=== PATIENT | female | born 1955 | race Caucasian/White ===

== ENCOUNTER 2022-06-17 02:22 | Inpatient (IN) | payer OTHER ==
[~2022-06-17] VITALS: Ht 167.6 cm; Wt 88.5 kg
--- NOTE | 2022-06-17 10:03 | NUR ---
Admitting Md business continuity planner dr ACEVEDO WAS CALLED, re; Admission order, pt is a direct admit from [facility]. Spoke to Gagandeep.
[2022-06-17] MEDS ORDERED: SYN50 PO (10:43)
[2022-06-17] MEDS ORDERED: PROP20TA7 PO (10:43)
[2022-06-17] MEDS ORDERED: PRO40 PO (10:43)
--- NOTE | 2022-06-17 10:45 | NUR ---
CONSULTATION PAGED REASON FOR CONSULTATION:GALLSTONES, PANCREATITIS WAS CONSULT CALLED?Y -PERSON WHO WAS NOTIFIED:CARMEN CONSULTING PHYSICIAN:ASYA KHAN LOGGING TRACTOR OPERATOR SWAMP SPECIALTY:GI LOGGING TRACTOR OPERATOR SWAMP PHONE NUMBER:[phone] REQUESTING PHYSICIAN:THANG BROWN
--- NOTE | 2022-06-17 10:45 | NUR ---
TRANSFER OF CARE RECEIVED REPORT FOR PATIENT
[2022-06-17 10:46] VITALS: BP_SYST 126
[2022-06-17] MEDS: NACL 0.9% 1,000 ML IV SCH ×2 (11:11→22:06)
[2022-06-17 11:12] LABS: BASOPHILS % (AUTO) 0.4 % (0.0-2.0); EOSINOPHILS # (AUTO) 0.1 K/uL (0.0-0.4); EOSINOPHILS % (AUTO) 1.1 % (0.0-4.0); HEMATOCRIT 37.5 % (36-48); HEMOGLOBIN 12.8 g/dL (12.0-16.0); LYMPHOCYTES # (AUTO) 1.5 K/uL (1.0-5.5); LYMPHOCYTES % (AUTO) 30.9 % (20.5-51.5); MEAN CORPUSCULAR HEMOGLOBIN 31 pg (27-31); MEAN CORPUSCULAR HGB CONC 34 % (32-36); MEAN CORPUSCULAR VOLUME 91 fL (79.0-98.0); MONOCYTES # (AUTO) 0.3 K/uL (0.0-1.0); MONOCYTES % (AUTO) 6.8 % (1.7-9.3); NEUTROPHILS % (AUTO) 60.8 % (40.0-70.0); PLATELET COUNT (AUTO) 179 K/uL (130-430); RED BLOOD CELL COUNT(AUTO) 4.14 MIL/uL (4.2-6.2); RED CELL DISTRIBUTION WIDTH 13.9 % (9.0-15.0)
--- NOTE | 2022-06-17 11:19 | NUR ---
MD DR COOPER BEDSIDE EXAMINING PATIENT
[2022-06-17 11:28] LABS: ALBUMIN 3.2 g/dL (3.4-4.8); CALCIUM 8.2 mg/dL (8.4-11.0); CREATININE 0.91 mg/dL (0.55-1.30); POTASSIUM 3.8 mmol/L (3.5-5.1); TOTAL BILIRUBIN 0.2 mg/dL (0.0-1.0)
[2022-06-17 12:00] VITALS: BP_SYST 151
--- NOTE | 2022-06-17 12:30 | NUR ---
INFORMED DR FRIED OF INCREASED BP AND HEADACHE, NEW ORDERS RECEIVED
[2022-06-17] MEDS ORDERED: amLODIPine BESYLATE 5 MG TABLET PO ONE (12:45)
--- NOTE | 2022-06-17 13:01 | NUR ---
md PER DR FRIED, CLEAR LIQUID DIET UNTIL MIDNIGHT THEN NPO FOR HIDA SCAN, AFTER SCAN RETURN TO CLEAR LIQUID DIET
[2022-06-17] MEDS: ACETAMINOPHEN 500 MG TABLET PO PRN (13:15)
[2022-06-17] MEDS ORDERED: BUPR300T55 PO (13:34)
[2022-06-17] MEDS ORDERED: FLUO20CA42 PO (13:34)
[2022-06-17] MEDS ORDERED: PROPRANOLOL HCL 10 MG TABLET (INDERAL) PO PRN (13:45)
[2022-06-17] MEDS ORDERED: buPROPion HCL 150 MG XL TAB PO ONE (14:15)
[2022-06-17] MEDS ORDERED: FLUoxetine HCL 20 MG CAPSULE (PROzac) PO ONE (14:15)
[2022-06-17 16:00] VITALS: BP_SYST 154
[2022-06-17] MEDS: MORPHINE 2 MG/ML INJ. SYRINGE IVP PRN ×2 (16:31→20:55)
--- NOTE | 2022-06-17 18:38 | NUR ---
headache continues to have pain despite pain medication administration. Requested cool compress and ice pack
--- NOTE | 2022-06-17 19:18 | NUR ---
CLOSING NOTE PROVIDED SBAR TO NIGHT RN, PATIENT IN BED, RESPIRATIONS EVEN, NON LABORED, BED IN LOW AND LOCKED POSITION CALL LIGHT WITHIN REACH. IVF'S RUNNING ORDERED. ENDORSED CARE TO NIGHT RN
[2022-06-17 20:00] VITALS: BP_SYST 140
[2022-06-17] MEDS: PANTOPRAZOLE SODIUM 40 MG TAB PO SCH (20:54)
[2022-06-18 04:00] VITALS: BP_SYST 149
--- NOTE | 2022-06-18 07:05 | NUR ---
NOTE MD AT NURSES STATION AND VOICES TO KEEP PT NPO AND NO IV PAIN MEDICATION. IF NEEDED PATIENT COULD TAKE BP MEDS OR SOMETHING ESSENTIAL WITH A SIP OF WATER. THIS RN TO REPORT TO ONCOMING NURSE AND TO ALSO REPORT IT WAS OKAY FOR PT TO TAKE HER 0700 SYNTHROID WITH A SIP OF WATER. VOICED HE WOULD BE BACK AROUND 10:00AM.
[2022-06-18] MEDS: LEVOTHYROXINE SODIUM 0.05 MG TABLET PO SCH (08:16)
[2022-06-18] MEDS ORDERED: FLUoxetine HCL 20 MG CAPSULE (PROzac) PO SCH (09:00)
[2022-06-18] MEDS: FLUoxetine HCL 20 MG CAPSULE (PROzac) PO SCH (09:00)
[2022-06-18] MEDS: amLODIPine BESYLATE 5 MG TABLET PO SCH (09:00)
[2022-06-18] MEDS: PANTOPRAZOLE SODIUM 40 MG TAB PO SCH ×2 (09:00→21:10)
[2022-06-18] MEDS: buPROPion HCL 150 MG XL TAB PO SCH (09:00)
[2022-06-18 09:11] VITALS: BP_SYST 118
[2022-06-18] MEDS: NACL 0.9% 1,000 ML IV SCH ×2 (15:31→21:12)
[2022-06-18] MEDS ORDERED: AMLO5TAB4 PO (16:58)
[2022-06-18] MEDS ORDERED: PRO20 PO (16:58)
--- NOTE | 2022-06-18 18:17 | NUR ---
rn notes patient and her daughter waiting for the MD to talk to them about the plans for DC. Will DC right after that.
[2022-06-18 20:00] VITALS: BP_SYST 139
[2022-06-18] MEDS: MORPHINE 2 MG/ML INJ. SYRINGE IVP PRN (21:11)
[2022-06-19 04:10] VITALS: BP_SYST 143
[2022-06-19] MEDS: LEVOTHYROXINE SODIUM 0.05 MG TABLET PO SCH (06:13)
[2022-06-19] MEDS: amLODIPine BESYLATE 5 MG TABLET PO SCH (08:02)
[2022-06-19] MEDS: buPROPion HCL 150 MG XL TAB PO SCH (08:04)
[2022-06-19] MEDS: PANTOPRAZOLE SODIUM 40 MG TAB PO SCH ×2 (08:04→20:46)
[2022-06-19] MEDS: FLUoxetine HCL 20 MG CAPSULE (PROzac) PO SCH (08:05)
[2022-06-19 10:13] VITALS: BP_SYST 135
[2022-06-19] MEDS: ACETAMINOPHEN 500 MG TABLET PO PRN (12:34)
[2022-06-19] MEDS: MORPHINE 2 MG/ML INJ. SYRINGE IVP PRN ×2 (13:43→23:13)
--- NOTE | 2022-06-19 18:35 | NUR ---
rn notes patient remains on room air, no sob noted. NPO at this time and is running IV fluid. Plan is to have MRI MRCP iraida, surgical consultation done as well. Patient will not be going home at this time
[2022-06-19 20:00] VITALS: BP_SYST 133
[2022-06-19 20:12] VITALS: BP_SYST 132
--- NOTE | 2022-06-19 20:21 | NUR ---
RECEIVED PT LYING IN BED, NO DISTRESS NOTED, DENIES PAIN AT THIS TIME. EPIGASTRIC TENDERNESS UPON LIGHT PALPATION. NO DISTENTION NOTED. Addendum: 06/19/22 at 2024 by [facility] RegistryMONET RN IVF INFUSING TO LT AC SITE CDI.
[2022-06-19] MEDS: NACL 0.9% 1,000 ML IV SCH (23:09)
[2022-06-20 00:54] VITALS: BP_SYST 155
--- NOTE | 2022-06-20 04:50 | NUR ---
DR. RUSSELL CAME TO SEE PT LAST NIGHT
[2022-06-20] MEDS: LEVOTHYROXINE SODIUM 0.05 MG TABLET PO SCH (06:47)
[2022-06-20 07:42] LABS: ALBUMIN 3.2 g/dL (3.4-4.8); CALCIUM 8.2 mg/dL (8.4-11.0); CREATININE 0.86 mg/dL (0.55-1.30); POTASSIUM 3.3 mmol/L (3.5-5.1); TOTAL BILIRUBIN 0.3 mg/dL (0.0-1.0)
[2022-06-20 07:48] LABS: BASOPHILS % (AUTO) 0.3 % (0.0-2.0); EOSINOPHILS # (AUTO) 0.1 K/uL (0.0-0.4); EOSINOPHILS % (AUTO) 1.1 % (0.0-4.0); HEMOGLOBIN 13.2 g/dL (12.0-16.0); LYMPHOCYTES # (AUTO) 1.6 K/uL (1.0-5.5); LYMPHOCYTES % (AUTO) 33.5 % (20.5-51.5); MEAN CORPUSCULAR HEMOGLOBIN 31 pg (27-31); MEAN CORPUSCULAR HGB CONC 35 % (32-36); MEAN CORPUSCULAR VOLUME 90 fL (79.0-98.0); MONOCYTES # (AUTO) 0.5 K/uL (0.0-1.0); MONOCYTES % (AUTO) 9.4 % (1.7-9.3); NEUTROPHILS # (AUTO) 2.7 K/uL (1.8-7.7); NEUTROPHILS % (AUTO) 55.7 % (40.0-70.0); PLATELET COUNT (AUTO) 165 K/uL (130-430); RED BLOOD CELL COUNT(AUTO) 4.23 MIL/uL (4.2-6.2); RED CELL DISTRIBUTION WIDTH 13.7 % (9.0-15.0); WHITE BLOOD COUNT (AUTO) 4.9 K/uL (4.8-10.8)
[2022-06-20 08:00] VITALS: BP_SYST 145
[2022-06-20] MEDS ORDERED: DIATR MEGLU/DIATRIZ SOD 30 ML SOLUTION PO ONE (08:21)
[2022-06-20] MEDS: amLODIPine BESYLATE 5 MG TABLET PO SCH ×2 (09:00→11:02)
[2022-06-20] MEDS: FLUoxetine HCL 20 MG CAPSULE (PROzac) PO SCH (11:01)
[2022-06-20] MEDS: PANTOPRAZOLE SODIUM 40 MG TAB PO SCH ×2 (11:01→20:46)
[2022-06-20] MEDS: buPROPion HCL 150 MG XL TAB PO SCH (11:02)
[2022-06-20] MEDS: MORPHINE 2 MG/ML INJ. SYRINGE IVP PRN ×2 (11:13→17:05)
[2022-06-20] MEDS ORDERED: iohexoL 350 mgI/mL, 100 ML INFUS..BTL IV ONE (14:39)
[2022-06-20 16:33] VITALS: BP_SYST 142
[2022-06-20] MEDS: NACL 0.9% 1,000 ML IV SCH ×2 (17:02→20:47)
[2022-06-20 20:00] VITALS: BP_SYST 123
[2022-06-21] VITALS: BP_SYST 128
[2022-06-21] MEDS: MORPHINE 2 MG/ML INJ. SYRINGE IVP PRN ×3 (05:14→21:39)
[2022-06-21] MEDS: LEVOTHYROXINE SODIUM 0.05 MG TABLET PO SCH (06:23)
[2022-06-21 08:00] VITALS: BP_SYST 118
[2022-06-21] MEDS: amLODIPine BESYLATE 5 MG TABLET PO SCH (09:00)
--- NOTE | 2022-06-21 09:14 | NUR ---
DR RUSSELL S/W . PER MD NO PLAN SURGERY FOR PATIENT AT THIS TIME. PATIENT IS TOLERATING CLEAR LIQUID DIET, NO C/O NAUSEA OR VOMITING. STATED THAT SHE HAD GALLSTONES FOR 10 YEARS NOW AND NEVER BOTHERED HER. SHE IS COMPLAINING OF CRAMPING ON HER SUPRAPUBIC AREA AND IS ASKING IF THEY FOUND SOMETHING ABOUT HER LADY PARTS. WILL NOTIFY DR ACEVEDO
[2022-06-21] MEDS: FLUoxetine HCL 20 MG CAPSULE (PROzac) PO SCH (09:20)
[2022-06-21] MEDS: PANTOPRAZOLE SODIUM 40 MG TAB PO SCH ×2 (09:20→21:39)
[2022-06-21] MEDS: buPROPion HCL 150 MG XL TAB PO SCH (09:20)
--- NOTE | 2022-06-21 09:30 | NUR ---
ENDORSED CARE TO MONET HENSLEY PT AWAKE AND A/O NO DISTRESS
[2022-06-21] MEDS: NACL 0.9% 1,000 ML IV SCH (12:01)
--- NOTE | 2022-06-21 12:02 | NUR ---
Patient medicated for 7/10 abdominal pain. Started new IVF bag as well. Patient stable at this time.
[2022-06-21 12:05] VITALS: BP_SYST 127
[2022-06-21 16:00] VITALS: BP_SYST 121
--- NOTE | 2022-06-21 16:00 | NUR ---
Patient resting comfortably in bed with no complaint at this time. Patient stable.
--- NOTE | 2022-06-21 18:05 | NUR ---
Patient stable; resting comfortably in bed at this time. Stable throughout shift.
--- NOTE | 2022-06-21 19:05 | NUR ---
Patient ambulated to bathroom and back to bed. Patient stable at this time.
[2022-06-21 20:00] VITALS: BP_SYST 125
[2022-06-22] VITALS: BP_SYST 118
[2022-06-22] MEDS: NACL 0.9% 1,000 ML IV SCH (04:18)
[2022-06-22] MEDS: LEVOTHYROXINE SODIUM 0.05 MG TABLET PO SCH (06:46)
[2022-06-22 07:26] LABS: BASOPHILS % (AUTO) 0.4 % (0.0-2.0); EOSINOPHILS # (AUTO) 0.1 K/uL (0.0-0.4); HEMOGLOBIN 12.1 g/dL (12.0-16.0); LYMPHOCYTES # (AUTO) 1.4 K/uL (1.0-5.5); LYMPHOCYTES % (AUTO) 34.4 % (20.5-51.5); MEAN CORPUSCULAR HEMOGLOBIN 31 pg (27-31); MEAN CORPUSCULAR HGB CONC 35 % (32-36); MEAN CORPUSCULAR VOLUME 90 fL (79.0-98.0); MONOCYTES # (AUTO) 0.4 K/uL (0.0-1.0); MONOCYTES % (AUTO) 9.1 % (1.7-9.3); NEUTROPHILS # (AUTO) 2.2 K/uL (1.8-7.7); NEUTROPHILS % (AUTO) 54.1 % (40.0-70.0); PLATELET COUNT (AUTO) 153 K/uL (130-430); RED BLOOD CELL COUNT(AUTO) 3.89 MIL/uL (4.2-6.2); RED CELL DISTRIBUTION WIDTH 13.9 % (9.0-15.0); WHITE BLOOD COUNT (AUTO) 4.1 K/uL (4.8-10.8)
[2022-06-22] MEDS ORDERED: INDOMETHACIN 50 MG SUPP.RECT RC ONE (08:00)
[2022-06-22] MEDS: FLUoxetine HCL 20 MG CAPSULE (PROzac) PO SCH (08:00)
[2022-06-22 08:10] LABS: INR 1.2 (0.8-1.2); PROTHROMBIN TIME 11.9 SECS (9.5-12.5)
[2022-06-22 08:29] LABS: ALBUMIN 2.8 g/dL (3.4-4.8); CALCIUM 8.3 mg/dL (8.4-11.0); POTASSIUM 3.1 mmol/L (3.5-5.1); TOTAL BILIRUBIN 0.3 mg/dL (0.0-1.0)
[2022-06-22] MEDS ORDERED: NALOXONE HCL 0.4 MG/ML AMP (NARCAN) IVP PRN (08:45)
[2022-06-22] MEDS ORDERED: MORPHINE 4 MG INJ. 4 MG/ML VIAL IVP PRN (08:45)
[2022-06-22] MEDS ORDERED: HYDROmorphone 1 MG/ML INJ. CARTRIDGE IVP PRN (08:45)
[2022-06-22] MEDS ORDERED: METOCLOPRAMIDE HCL 10 MG/2 ML VIAL IVP PRN (08:45)
[2022-06-22] MEDS ORDERED: ONDANSETRON HCL 4 MG/2 ML VIAL IVP PRN (08:45)
[2022-06-22] MEDS ORDERED: KETOROLAC TROMETHAMINE 30 MG VIAL IVP PRN (08:45)
[2022-06-22] MEDS: amLODIPine BESYLATE 5 MG TABLET PO SCH (09:00)
[2022-06-22] MEDS: PANTOPRAZOLE SODIUM 40 MG TAB PO SCH ×2 (09:00→21:53)
[2022-06-22] MEDS: buPROPion HCL 150 MG XL TAB PO SCH (09:00)
[2022-06-22] MEDS ORDERED: PROPOFOL 200MG/ 20ML VIAL (DIPRIVAN) IV ONE (09:01)
[2022-06-22] MEDS ORDERED: SEVOFLURANE 15 MIN GAS INH ONE (09:01)
[2022-06-22] MEDS ORDERED: ROCURONIUM BROMIDE 10 MG/ML (ZEMURON) ONE (09:01)
[2022-06-22] MEDS ORDERED: GLUCAGON,HUMAN RECOMBINANT 1 MG VIAL ONE (09:01)
[2022-06-22] MEDS ORDERED: D5/0.45 NS 1,000 ML IV.SOLN IV ONE (09:01)
[2022-06-22] MEDS ORDERED: DEXAMETHASONE SOD PHOSPHATE 4 MG/ML VIAL ONE (09:08)
[2022-06-22] MEDS ORDERED: ALBUTEROL SULFATE 0.083% 2.5 MG/3 ML VIAL.NEB INH ONE ×2 (09:08→09:15)
[2022-06-22] MEDS: DEXAMETHASONE SOD PHOSPHATE 4 MG/ML VIAL IVP ONE ×2 (09:10→09:15)
[2022-06-22 09:24] VITALS: BP_SYST 118
[2022-06-22] MEDS: ONDANSETRON 4 MG ODT TAB PO PRN (09:25)
[2022-06-22] MEDS ORDERED: ONDANSETRON HCL 4 MG/2 ML VIAL ONE (09:27)
[2022-06-22] MEDS ORDERED: MORPHINE 4 MG INJ. 4 MG/ML VIAL ONE (09:27)
[2022-06-22] MEDS: KETOROLAC TROMETHAMINE 30 MG VIAL ONE ×2 (09:28→09:30)
[2022-06-22] MEDS: MORPHINE 2 MG/ML INJ. SYRINGE IVP PRN ×3 (09:36→21:54)
[2022-06-22 09:46] LABS: CREATININE 0.76 mg/dL (0.55-1.30)
[2022-06-22 09:49] LABS: BILIRUBIN,URINE NEGATIVE (NEGATIVE); BLOOD, URINE 1+ (NEGATIVE); CLARITY/URINE CLEAR (CLEAR); COLOR,URINE YELLOW (YELLOW); GLUCOSE,URINE NEGATIVE (NEGATIVE); KETONES,URINE 1+ (NEGATIVE); LEUKOCYTE ESTERASE ,URINE TRACE (NEGATIVE); NITRITE, URINE NEGATIVE (NEGATIVE); PROTEIN URINE NEGATIVE (NEGATIVE)
[2022-06-22 10:04] LABS: BACTERIA,URINE RARE /HPF (None Seen); MUCUS,URINE 1+ /LPF (None Seen); RBC,URINE 0-3 /HPF (0-3); WBC,URINE 0-3 /HPF (0-3)
[2022-06-22] MEDS: MIDAZOLAM HCL 2 MG/2 ML VIAL (VERSED) ONE ×3 (10:05→10:10)
[2022-06-22] MEDS ORDERED: MIDAZOLAM HCL 2 MG/2 ML VIAL (VERSED) IVP ONE (10:15)
[2022-06-22 10:56] VITALS: BP_SYST 162
--- NOTE | 2022-06-22 10:56 | NUR ---
Miss Nascimento has returned from PACU to room 112-A. She is accompanied by her daughter Lukasz. She is nauseated and in pain. She was also incontinent of bladder. She was given anti nausea medication as well as pain medication. she was cleaned and was then able to use the bed jacobson for more urine and a bm of soft stools. she was then allowed to rest.
[2022-06-22 12:46] VITALS: BP_SYST 137
--- NOTE | 2022-06-22 15:14 | NUR ---
Dietitian Recommendations * Continue plan for NPO * Consider alternative nutrition support within 14 days if PO diet is not gradually advanced to prevent malnutrition LP, MS, RD Please refer to Nutrition Assessment for details. Addendum: 06/22/22 at [address] Amended: Links added.
--- NOTE | 2022-06-22 16:00 | NUR ---
Miss Nascmiento has been seen by the surgeon. she will not be DC today. She can have her diet advanced as tolerated per the surgeon. She has no further complaints of pain or nausea. Her daughter remains at the bedside. She ambulates to the restroom with no assistance. She is presently resting quietly at this time.
[2022-06-22 16:53] VITALS: BP_SYST 139
[2022-06-22] MEDS: LR 1,000 ML IV SCH (17:19)
--- NOTE | 2022-06-22 18:45 | NUR ---
handoff has been given to Terence
[2022-06-22] MEDS ORDERED: KCL 40 mEq in 100 mL (PREMIX) 100 ML IV ONE (20:00)
[2022-06-22 20:31] VITALS: BP_SYST 147
[2022-06-23] MEDS: LR 1,000 ML IV SCH ×3 (00:35→16:45)
[2022-06-23 01:11] VITALS: BP_SYST 126
[2022-06-23] MEDS: LEVOTHYROXINE SODIUM 0.05 MG TABLET PO SCH (06:11)
[2022-06-23] MEDS ORDERED: HYDROcodone/ACETAMIN 5-325 MG TAB (NORCO/ VICODIN) PO PRN (07:00)
[2022-06-23 08:00] VITALS: BP_SYST 130
--- NOTE | 2022-06-23 08:00 | NUR ---
Initial Notes Patient is AOx4. Ambulatory with a steady gait. No s.s of distress noted. Patient is on room air. Breathing is even and nonlabored, Vital signs obtained, as documented. Patient is eating breakfast. Safety precautions in place and call light within reach.
[2022-06-23 08:11] LABS: ALBUMIN 3.2 g/dL (3.4-4.8); CALCIUM 9.4 mg/dL (8.4-11.0); CREATININE 0.88 mg/dL (0.55-1.30); POTASSIUM 4.2 mmol/L (3.5-5.1); TOTAL BILIRUBIN 0.4 mg/dL (0.0-1.0)
[2022-06-23] MEDS: amLODIPine BESYLATE 5 MG TABLET PO SCH (09:00)
[2022-06-23] MEDS: PANTOPRAZOLE SODIUM 40 MG TAB PO SCH (09:06)
[2022-06-23] MEDS: buPROPion HCL 150 MG XL TAB PO SCH (09:06)
[2022-06-23] MEDS: FLUoxetine HCL 20 MG CAPSULE (PROzac) PO SCH (09:06)
[2022-06-23 12:00] VITALS: BP_SYST 130
--- NOTE | 2022-06-23 12:00 | NUR ---
Notes Patient is eating lunch. No distress noted. Denies pain. Family at bedside. Call light within reach.
[2022-06-23 12:07] LABS: BASOPHILS % (AUTO) 0.6 % (0.0-2.0); EOSINOPHILS % (AUTO) 0.4 % (0.0-4.0); HEMATOCRIT 38.7 % (36-48); LYMPHOCYTES # (AUTO) 1.1 K/uL (1.0-5.5); LYMPHOCYTES % (AUTO) 17.5 % (20.5-51.5); MEAN CORPUSCULAR HEMOGLOBIN 31 pg (27-31); MEAN CORPUSCULAR HGB CONC 34 % (32-36); MEAN CORPUSCULAR VOLUME 91 fL (79.0-98.0); MONOCYTES # (AUTO) 0.4 K/uL (0.0-1.0); MONOCYTES % (AUTO) 7.3 % (1.7-9.3); NEUTROPHILS # (AUTO) 4.4 K/uL (1.8-7.7); NEUTROPHILS % (AUTO) 74.2 % (40.0-70.0); PLATELET COUNT (AUTO) 165 K/uL (130-430); RED BLOOD CELL COUNT(AUTO) 4.25 MIL/uL (4.2-6.2); RED CELL DISTRIBUTION WIDTH 14.1 % (9.0-15.0)
[2022-06-23 16:00] VITALS: BP_SYST 121
--- NOTE | 2022-06-23 16:00 | NUR ---
Notes Patient is resting in bed, watching videos on phone. No s/.s of distress noted. Patient denies pain. VSS. No change in assessment. Safety precautions in place and call light within reach.
--- NOTE | 2022-06-23 19:43 | NUR ---
Closing Notes Patient eating dinner. Denies pain. No SOB. Breathing is even and nonlabored, on room. All needs met. Safety precautions in place and call light within reach. Endorsed care to oncoming nurse.
--- NOTE | 2022-06-23 22:13 | NUR ---
Opening Notes Received report from day nurse. Unable to assess pt promptly, Charge Nurse Seven will assist in patient care.
[2022-06-23 22:30] VITALS: BP_SYST 161
--- NOTE | 2022-06-23 23:30 | NUR ---
Nursing Note Patient upset at lack of communication. Pt states that she was told by one of her doctors that she would have surgery on gallbladder the following day and wanted more information
[2022-06-24 00:29] VITALS: BP_SYST 137
[2022-06-24] MEDS: PANTOPRAZOLE SODIUM 40 MG TAB PO SCH ×2 (06:58→08:52)
[2022-06-24] MEDS: LEVOTHYROXINE SODIUM 0.05 MG TABLET PO SCH (07:00)
--- NOTE | 2022-06-24 07:25 | NUR ---
Morning rounds: Received report from night nurse.Patient awake lying in the bed.Denies any pain. Call light with in reach. Bed locked at lowest position. Not in any distress.
[2022-06-24 08:14] VITALS: BP_SYST 143
[2022-06-24 08:23] LABS: CALCIUM 8.8 mg/dL (8.4-11.0); CREATININE 0.82 mg/dL (0.55-1.30); POTASSIUM 3.2 mmol/L (3.5-5.1); TOTAL BILIRUBIN 0.3 mg/dL (0.0-1.0)
[2022-06-24] MEDS: amLODIPine BESYLATE 5 MG TABLET PO SCH ×2 (08:51→09:00)
[2022-06-24] MEDS: FLUoxetine HCL 20 MG CAPSULE (PROzac) PO SCH (08:51)
[2022-06-24] MEDS: buPROPion HCL 150 MG XL TAB PO SCH (08:51)
--- NOTE | 2022-06-24 09:00 | NUR ---
Refused Norvasc: Patient refused to take Norvasc until she speaks to the doctor.Rn will follow up regarding that matter.
[2022-06-24] MEDS ORDERED: POTASSIUM CHLORIDE 20 MEQ/PKT PACKET PO ONE (11:15)
[2022-06-24 11:50] VITALS: BP_SYST 136
--- NOTE | 2022-06-24 13:00 | NUR ---
Assume Care Patient finished lunch. No distress noted. Denies pain. Patient's breathing is even and nonlabored, on room air. Ambulatory with steady gait. IV site was swollen, changed IV to 22 G right wrist. Patent. Call light within reach. Dr. Hernández making rounds. MD aware that patient refused Norvasc. MD state will speak to patient.
[2022-06-24 14:41] LABS: BASOPHILS % (AUTO) 1.1 % (0.0-2.0); EOSINOPHILS % (AUTO) 1.2 % (0.0-4.0); HEMATOCRIT 36.9 % (36-48); HEMOGLOBIN 12.4 g/dL (12.0-16.0); LYMPHOCYTES # (AUTO) 1.2 K/uL (1.0-5.5); LYMPHOCYTES % (AUTO) 30.1 % (20.5-51.5); MEAN CORPUSCULAR HEMOGLOBIN 31 pg (27-31); MEAN CORPUSCULAR HGB CONC 34 % (32-36); MEAN CORPUSCULAR VOLUME 91 fL (79.0-98.0); MONOCYTES # (AUTO) 0.4 K/uL (0.0-1.0); MONOCYTES % (AUTO) 10.2 % (1.7-9.3); NEUTROPHILS # (AUTO) 2.2 K/uL (1.8-7.7); NEUTROPHILS % (AUTO) 57.4 % (40.0-70.0); PLATELET COUNT (AUTO) 161 K/uL (130-430); RED BLOOD CELL COUNT(AUTO) 4.05 MIL/uL (4.2-6.2); RED CELL DISTRIBUTION WIDTH 14.4 % (9.0-15.0); WHITE BLOOD COUNT (AUTO) 3.9 K/uL (4.8-10.8)
[2022-06-24] MEDS ORDERED: ONDA-8 PO (15:28)
--- NOTE | 2022-06-24 17:01 | NUR ---
Notes Patient is resting, eyes closed. Aroused to name. MD came earlier to see patient, patient to be discharged, patient aware of being discharged. Patient upset because she cannot have procedure done due to OR being closed, but agrees with being discharged. States family will pick her up after 7pm. Safety precautions in place and call light within reach.
[2022-06-24 17:22] VITALS: BP_SYST 124
[2022-06-24 18:14] VITALS: BP_SYST 120
[2022-06-24] MEDS: ONDANSETRON 4 MG ODT TAB PO PRN (18:33)
--- NOTE | 2022-06-24 18:55 | NUR ---
DISCHARGE PATIENT DISCHARGED HOME. AMBULATORY WITH A STEADY GAIT. NO ACUTE S.S OF DISTRESS NOTED. BREATHING IS EVEN AND NONLABORED ON ROOM AIR. VITAL SIGNS STABLE. PATIENT GIVEN MEDICATION RECONCILIATION FORM AND DISCHARGE INSTRUCTIONS. PATIENT VERBALIZED UNDERSTANDING. EDUCATED PATIENT ON PAIN MANAGEMENT, FOLLOW CARE INSTRUCTIONS, AND DIET. PATIENT IN STABLE CONDITION. ID BAND REMOVED. IV CATHETER REMOVED, INTACT, AND DRESSING APPLIED. NO ACTIVE BLEEDING. RX OF MEDS GIVEN. ALL BELONGINGS SENT WITH PATIENT.
[2022-06-25] MEDS ORDERED: PANTOPRAZOLE SODIUM 40 MG TAB PO SCH (09:00)
== END 2022-06-24 18:48 | disposition home or self-care (01) | DRG 439 ==
LOC: SMU 09:44 → STU 10:00 → SMU 06-19 11:18
PROVIDERS: ADMIT Specialist; ATTEND Specialist
PROC: 0F798ZZ Dilation of Common Bile Duct, Via Natural or Artificial Opening Endoscopic (ICD-10-PCS; principal; 2022-06-22 07:40)
PROC: BF131ZZ Fluoroscopy of Gallbladder and Bile Ducts using Low Osmolar Contrast (ICD-10-PCS; 2022-06-22 07:40)
DX: K85.10 Biliary acute pancreatitis without necrosis or infection (principal); E44.0 Moderate protein-calorie malnutrition; E66.01 Morbid (severe) obesity due to excess calories; E03.9 Hypothyroidism, unspecified; K76.0 Fatty (change of) liver, not elsewhere classified; F32.A Depression, unspecified; F41.9 Anxiety disorder, unspecified; I10 Essential (primary) hypertension; Z20.822 Contact with and (suspected) exposure to COVID-19; Z87.19 Personal history of other diseases of the digestive system; Z68.31 Body mass index [BMI] 31.0-31.9, adult
CPT/HCPCS: 36415; 43262; 71045; 74181; 74330-TC; 76376; 76700-TC; 78226; 80053; 81000; 82150; 83690; 85025; 85610-TC; 85730-TC; 87081; 93005; 94640; A9537; C1769; G0378; J1100; J1610; J1885; J2270; J2405; J2704; J2765; J3465; J3480; J7613; Q0162; Q9964; Q9967